=== PATIENT | male | born 1990 | race Caucasian/White ===

== ENCOUNTER 2018-03-05 05:13 | Emergency (ER) | payer BC, OTHER ==
[~2018-03-05] VITALS: Ht 177.8 cm; Wt 69.7 kg
[~2018-03-05 05:13] MED LIST: KETO10TA2 PO
[2018-03-05] MEDS ORDERED: dexamethasone 4mg/ml inj IM ONE (05:50)
[2018-03-05 06:10] VITALS: BP 124/71
[2018-03-06] MEDS ORDERED: METH4TAB3 PO (10:58)
== END 2018-03-05 06:14 | disposition home or self-care (01) ==
LOC: ER 05:13
DX: L50.9 Urticaria, unspecified (principal)
CPT/HCPCS: 96372; 99283; J1100

== ENCOUNTER 2018-03-06 10:04 | Emergency (ER) | payer BC ==
[~2018-03-06] VITALS: Ht 170.2 cm; Wt 68.2 kg
[2018-03-06 10:08] VITALS: BP 128/78
[2018-03-06] MEDS ORDERED: METH4TAB3 PO (10:58)
[2018-03-06] MEDS ORDERED: famotidine 20mg tablet PO STA (10:58)
== END 2018-03-06 11:12 | disposition home or self-care (01) ==
LOC: ER 10:05
DX: L23.9 Allergic contact dermatitis, unspecified cause (principal); Z79.899 Other long term (current) drug therapy
CPT/HCPCS: 99283

== ENCOUNTER 2018-10-08 23:19 | Emergency (ER) | payer BC, OTHER ==
[~2018-10-08] VITALS: Ht 180.3 cm; Wt 73.0 kg
[~2018-10-08 23:19] MED LIST changes: +METH4TAB3 PO
[2018-10-09] MEDS ORDERED: HYDROcodone/acetaminophen 10/325mg tab PO ONE (00:15)
[2018-10-09] MEDS ORDERED: IBUP-1986 PO (00:20)
[2018-10-09] MEDS ORDERED: HYDR-4383 PO (00:20)
[2018-10-09 00:47] VITALS: BP 118/79
== END 2018-10-09 00:53 | disposition home or self-care (01) ==
LOC: ER 23:19
DX: S52.571A Other intraarticular fracture of lower end of right radius, initial encounter for closed fracture (principal); F12.90 Cannabis use, unspecified, uncomplicated; Z98.890 Other specified postprocedural states; Z79.899 Other long term (current) drug therapy; W18.39XA Other fall on same level, initial encounter; Y93.89 Activity, other specified; Y92.89 Other specified places as the place of occurrence of the external cause; Y99.8 Other external cause status
CPT/HCPCS: 29125; 73110; 99284